=== PATIENT | male | born 1995 | race Caucasian/White ===

== ENCOUNTER 2024-03-18 10:21 | Emergency (ER) | payer SELFPAY ==
[~2024-03-18] VITALS: Ht 185.4 cm; Wt 86.2 kg
[2024-03-18 10:45] VITALS: BP 158/99
== END 2024-03-18 12:28 | disposition home or self-care (01) ==
LOC: ER 10:21
DX: H53.9 Unspecified visual disturbance (principal); F17.200 Nicotine dependence, unspecified, uncomplicated
CPT/HCPCS: 99283